=== PATIENT | female | born 1955 | race Caucasian/White ===

== ENCOUNTER 2016-08-10 07:17 | Inpatient (IN) | payer OTHER ==
[~2016-08-10] VITALS: Ht 149.9 cm; Wt 101.8 kg
[~2016-08-10 07:17] MED LIST: RINGERS SOLUTION,LACTATED 1,000 ML IV ONE
[2016-08-10] MEDS ORDERED: RINGERS SOLUTION,LACTATED 1,000 ML IV ONE ×2 (07:25→07:30)
[2016-08-10] MEDS ORDERED: LEVO100T4 PO (07:58)
[2016-08-10] MEDS ORDERED: LISI1TAB11 PO (07:58)
[2016-08-10] MEDS ORDERED: SERT25TA5 PO (07:58)
[2016-08-10] MEDS ORDERED: MELO-267 PO (07:58)
[2016-08-10] MEDS ORDERED: RANI150T7 PO (07:58)
[2016-08-10] MEDS ORDERED: BACL10TA PO (07:58)
[2016-08-10] MEDS ORDERED: SODI650T PO (07:58)
[2016-08-10] MEDS ORDERED: ROSU10 PO (07:58)
[2016-08-10 08:42] LABS: GLUCOSE,POINT OF CARE 108 MG/DL (70-110)
== END 2016-08-10 09:40 | disposition home or self-care (01) | DRG 351 ==
LOC: 4E 07:17
PROVIDERS: ADMIT Orthopaedic Surgery; ATTEND Orthopaedic Surgery
DX: M17.12 Unilateral primary osteoarthritis, left knee (principal); I10 Essential (primary) hypertension; F32.9 Major depressive disorder, single episode, unspecified; Z83.3 Family history of diabetes mellitus; Z82.49 Family history of ischemic heart disease and other diseases of the circulatory system; Z90.710 Acquired absence of both cervix and uterus
CPT/HCPCS: 82962; 87081; J7120